=== PATIENT | male | born 1965 | race Caucasian/White ===

== ENCOUNTER → 2016-12-30 | Outpatient (CLI) | payer OTHER | LOC: EXRD 13:17 | DX: E66.01 Morbid (severe) obesity due to excess calories (principal) | CPT/HCPCS: 71020 ==

== ENCOUNTER → 2016-12-30 | Outpatient (CLI) | payer OTHER | LOC: HEART 5 11:50 | DX: R94.2 Abnormal results of pulmonary function studies (principal) | CPT/HCPCS: 94010 ==